=== PATIENT | female | born 1990 | race Caucasian/White ===

== ENCOUNTER 2019-04-20 22:13 | Emergency (ER) ==
[2019-04-20 22:41] VITALS: BP 119/68
[2019-04-21 00:49] LABS: ABSOLUTE BASOPHILS # (AUTO) 0.1 10^3/uL (0.0-0.2); ABSOLUTE EOSINOPHILS # (AUTO) 0.1 10^3/uL (0.0-0.6); ABSOLUTE LYMPHOCYTES (AUTO) 1.3 10^3/uL (0.5-4.7); ABSOLUTE MONOCYTES (AUTO) 0.7 10^3/uL (0.1-1.4); BASOPHILS % (AUTO) 0.7 % (0-2); EOSINOPHILS % (AUTO) 0.7 % (0-6); HEMATOCRIT 38.6 % (36.0-47.0); HEMOGLOBIN 12.8 g/dL (12.0-15.5); LYMPHOCYTES % (AUTO) 11.7 % (13-45); MEAN CORPUSCULAR HEMOGLOBIN 30.3 pg (27.0-33.4); MEAN CORPUSCULAR HGB CONC 33.3 g/dL (32.0-36.0); MEAN CORPUSCULAR VOLUME 91 fl (80-97); MONOCYTES % (AUTO) 6.2 % (3-13); PLATELET COUNT 249 10^3/uL (150-450); RED BLOOD COUNT 4.24 10^6/uL (3.72-5.28); RED CELL DISTRIBUTION WIDTH 12.8 % (11.5-14.0); SEGMENTED NEUTROPHILS % (AUTO) 80.7 % (42-78); TOTAL CELLS COUNTED % (AUTO) 100 %; WHITE BLOOD COUNT 11.2 10^3/uL (4.0-10.5)
[2019-04-21 00:55] LABS: APPEARANCE,URINE SLIGHTLY-CLOUDY; BILIRUBIN,URINE NEGATIVE (NEGATIVE); COLOR,URINE YELLOW; GLUCOSE, URINE NEGATIVE (NEGATIVE); KETONES,URINE TRACE mg/dL (NEGATIVE); LEUKOCYTE ESTERASE,URINE SMALL (NEGATIVE); NITRITE,URINE NEGATIVE (NEGATIVE); PROTEIN,URINE NEGATIVE (NEGATIVE); URINE SPECIFIC GRAVITY 1.025
[2019-04-21 01:15] LABS: ALBUMIN 4.2 g/dL (3.5-5.0); ALKALINE PHOSPHATASE 91 U/L (38-126); ANION GAP 10 (5-19); ASPARTATE AMINO TRANSFERASE 21 U/L (14-36); BILIRUBIN,DIRECT 0.1 mg/dL (0.0-0.4); BILIRUBIN,TOTAL 0.6 mg/dL (0.2-1.3); BLOOD UREA NITROGEN 12 mg/dL (7-20); CALCIUM 9.6 mg/dL (8.4-10.2); CARBON DIOXIDE 25 mmol/L (22-30); CHLORIDE 107 mmol/L (98-107); GLUCOSE 82 mg/dL (75-110); POTASSIUM 4.4 mmol/L (3.6-5.0); TOTAL PROTEIN 7.6 g/dL (6.3-8.2)
== END 2019-04-21 03:10 | disposition left against medical advice (07) ==
LOC: ER 22:13
DX: Z53.21 Procedure and treatment not carried out due to patient leaving prior to being seen by health care provider (principal)
CPT/HCPCS: 36415; 80053; 81001; 83690; 85025

== ENCOUNTER 2019-04-21 12:57 | Emergency (ER) | payer SELFPAY ==
--- NOTE | 2019-04-21 13:19 | ER Document Report ---
ED Medical Screen (RME) - General Chief Complaint: Abdominal Pain Stated Complaint: LOWER ABDOMINAL/PELVIC PAIN Time Seen by Provider: 04/21/19 13:13 Mode of Arrival: Ambulatory Information source: Patient Notes: 29-year-old female with no past medical history presents emergency department with right lower quad/pelvic pain. Reports she is had the pain all week. Reports she cannot get comfortable. Reports she has been eating drinking voiding as normal denies pain with void. Reports she is not eating as much. Denies vaginal discharge. I have greeted and performed a rapid initial assessment of this patient. A comprehensive ED assessment and evaluation of the patient, analysis of test results and completion of the medical decision making process will be conducted by additional ED providers. Dictation of this chart was performed using voice recognition software; therefore, there may be some unintended grammatical errors. TRAVEL OUTSIDE OF THE [place] IN LAST 30 DAYS: No - Related Data Allergies/Adverse Reactions: Penicillins Allergy (Unknown, Verified 04/21/19 13:10) Past Medical History - Social History Frequency of alcohol use: None Drug Abuse: None Physical Exam - Vital signs Vitals: Temp Pulse Resp BP Pulse Ox 98.6 F 80 18 113/66 100 04/21/19 13:02 04/21/19 13:02 04/21/19 13:02 04/21/19 13:02 04/21/19 13:02 Course - Vital Signs Vital signs: Temp Pulse Resp BP Pulse Ox 98.6 F 80 18 113/66 100 04/21/19 13:10 04/21/19 13:02 04/21/19 13:10 04/21/19 13:02 04/21/19 13:10
[2019-04-21 13:58] LABS: ABSOLUTE BASOPHILS # (AUTO) 0.1 10^3/uL (0.0-0.2); ABSOLUTE EOSINOPHILS # (AUTO) 0.1 10^3/uL (0.0-0.6); ABSOLUTE LYMPHOCYTES (AUTO) 0.8 10^3/uL (0.5-4.7); ABSOLUTE MONOCYTES (AUTO) 0.7 10^3/uL (0.1-1.4); ABSOLUTE NEUT (AUTO) 7.8 10^3/uL (1.7-8.2); BASOPHILS % (AUTO) 0.5 % (0-2); EOSINOPHILS % (AUTO) 1.2 % (0-6); HEMATOCRIT 39.6 % (36.0-47.0); HEMOGLOBIN 13.4 g/dL (12.0-15.5); LYMPHOCYTES % (AUTO) 8.3 % (13-45); MEAN CORPUSCULAR HEMOGLOBIN 30.7 pg (27.0-33.4); MEAN CORPUSCULAR HGB CONC 33.8 g/dL (32.0-36.0); MEAN CORPUSCULAR VOLUME 91 fl (80-97); MONOCYTES % (AUTO) 7.5 % (3-13); PLATELET COUNT 237 10^3/uL (150-450); RED BLOOD COUNT 4.35 10^6/uL (3.72-5.28); RED CELL DISTRIBUTION WIDTH 12.8 % (11.5-14.0); SEGMENTED NEUTROPHILS % (AUTO) 82.5 % (42-78); TOTAL CELLS COUNTED % (AUTO) 100 %; WHITE BLOOD COUNT 9.4 10^3/uL (4.0-10.5)
[2019-04-21 14:08] LABS: ALBUMIN 4.2 g/dL (3.5-5.0); ALKALINE PHOSPHATASE 81 U/L (38-126); ANION GAP 10 (5-19); ASPARTATE AMINO TRANSFERASE 19 U/L (14-36); BLOOD UREA NITROGEN 9 mg/dL (7-20); CALCIUM 9.7 mg/dL (8.4-10.2); CARBON DIOXIDE 26 mmol/L (22-30); CHLORIDE 104 mmol/L (98-107); POTASSIUM 3.7 mmol/L (3.6-5.0); TOTAL PROTEIN 7.5 g/dL (6.3-8.2)
--- NOTE | 2019-04-21 14:09 | RADIOLOGY REPORT (SQ) ---
EXAM DESCRIPTION: U/S NON OB PEL TV W/DOPPLER COMPLETED DATE/TIME: 04/21/2019 1:50 pm REASON FOR STUDY: right lower pelvic pain COMPARISON: None. TECHNIQUE: Dynamic and static grayscale images acquired of the pelvis via transvaginal approach and recorded on PACS. Additional selected color Doppler and spectral images recorded. LIMITATIONS: None. FINDINGS: UTERUS: Contour normal. No mass. ENDOMETRIAL STRIPE: No focal or generalized thickening. No masses. CERVIX: No nabothian cysts. RIGHT OVARY AND DOPPLER: Normal size. No worrisome masses. Normal arterial vascular flow without evid ence for torsion. LEFT OVARY AND DOPPLER: Ovary not visualized. FREE FLUID: Free fluid is seen within the pelvic cul-de-sac and adjacent to the right adnexa. OTHER: No other significant finding. MEASUREMENTS: UTERUS: 8.9 x 4.2 x 5.1 cm ENDOMETRIAL STRIPE: 0.2 cm RIGHT OVARY: 4.0 x 2.3 x 3.2 cm LEFT OVARY: Not visualized. IMPRESSION: Limited examination in that the left ovary was not visualized. No findings to correlate to the patient's reported right lower quadrant pain. Normal sonographic appearance of the uterus an d right adnexa. TECHNICAL DOCUMENTATION: JOB ID: [id number] [employer]- All Rights Reserved Rev-09/23 Reading location - IP/workstation name: [email or web address]
[2019-04-21 14:13] LABS: GLUCOSE 66 mg/dL (75-110)
[2019-04-21 14:15] LABS: APPEARANCE,URINE CLEAR; BILIRUBIN,URINE NEGATIVE (NEGATIVE); COLOR,URINE YELLOW; GLUCOSE, URINE NEGATIVE (NEGATIVE); KETONES,URINE NEGATIVE (NEGATIVE); PROTEIN,URINE NEGATIVE (NEGATIVE); URINE SPECIFIC GRAVITY 1.016
[2019-04-21] MEDS ORDERED: KETOROLAC TROMETHAMINE INJ/PF 30 MG/1 ML SDV IV ONE (18:42)
[2019-04-21] MEDS ORDERED: NORMAL SALINE 1000 ML 1,000 ML IV ONE (18:42)
--- NOTE | 2019-04-21 19:14 | ER Document Report ---
ED General - General Chief Complaint: Abdominal Pain Stated Complaint: LOWER ABDOMINAL/PELVIC PAIN Time Seen by Provider: 04/21/19 13:13 Mode of Arrival: Ambulatory TRAVEL OUTSIDE OF THE [place] IN LAST 30 DAYS: No - HPI Notes: 29-year-old female to the emergency department with complaints of right lower quadrant abdominal pain that has been getting progressively worse since Tuesday. She states that it was mild at the beginning of the week but in the past 2 days it has gotten much more painful. She is tried Tylenol without a lot of relief. She states that her last menstrual period was March 19 and that she has been having some bleeding for 4 days this week. She states that she bled for 2 and then stopped bleeding and then the period came back on again. She has never had a history of ovarian cyst. She still has an appendix. She denies any nausea vomiting. She denies any fevers. She states that she has a history of tubal ligation. Denies any urinary symptoms. - Related Data Allergies/Adverse Reactions: Penicillins Allergy (Unknown, Verified 04/21/19 13:10) Past Medical History - General Information source: Patient - Social History Smoking Status: Current Every Day Smoker Frequency of alcohol use: None Drug Abuse: None Lives with: Family Family History: Reviewed & Not Pertinent Patient has suicidal ideation: No Patient has homicidal ideation: No Review of Systems - Review of Systems Constitutional: denies: Chills, Fever EENT: No symptoms reported Cardiovascular: denies: Chest pain, Palpitations, Dizziness, Lightheaded Respiratory: denies: Cough, Short of breath Gastrointestinal: See HPI, Abdominal pain. denies: Diarrhea, Nausea, Vomiting Genitourinary: denies: Frequency, Flank pain, Hematuria Female Genitourinary: Vaginal bleeding. denies: , Vaginal discharge Musculoskeletal: No symptoms reported Skin: No symptoms reported Hematologic/Lymphatic: No symptoms reported Neurological/Psychological: No symptoms reported -: Yes All other systems reviewed and negative Physical Exam - Vital signs Vitals: Temp Pulse Resp BP Pulse Ox 98.6 F 80 18 113/66 100 04/21/19 13:02 04/21/19 13:02 04/21/19 13:02 04/21/19 13:02 04/21/19 13:02 Interpretation: Normal - General General appearance: Appears well, Alert In distress: None - HEENT Head: Normocephalic, Atraumatic Eyes: Normal Pupils: PERRL - Respiratory Respiratory status: No respiratory distress Chest status: Nontender. No: Accessory muscle use Breath sounds: Normal. No: Rales, Rhonchi, Stridor, Wheezing Chest palpation: Normal - Cardiovascular Rhythm: Regular Heart sounds: Normal auscultation Murmur: No - Abdominal Inspection: Normal Distension: No distension Bowel sounds: Normal Tenderness: Tender - Positive tenderness to palpation in the right lower quadrant at McBurney's point. There is mild voluntary guarding. Negative Rovsing's. Negative heeltap. No: Martines's sign Organomegaly: No organomegaly - Back Back: Normal, Nontender - Neurological Neuro grossly intact: Yes Cognition: Normal Orientation: AAOx4 [place] Coma Scale Eye Opening: Spontaneous Sary Coma Scale Verbal: Oriented Sary Coma Scale Motor: Obeys Commands Sary Coma Scale Total: 15 Speech: Normal Cranial nerves: Normal Cerebellar coordination: Normal Motor strength normal: LUE, RUE, LLE, RLE Additional motor exam normals: Equal box turner. No: Pronator drift Sensory: Normal - Psychological Associated symptoms: Normal affect, Normal mood - Skin Skin Temperature: Warm Skin Moisture: Dry Skin Color: Normal Course - Re-evaluation Re-evalutation: 04/21/19 19:14 Patient with right lower quadrant abdominal pain. Ultrasound did not show ovarian cyst. Do believe that patient will require CT to evaluate further for appendicitis. Noted labs. Patient is not . Patient agrees with the plan. 04/21/19 20:09 Turned patient over to LONNY Kohler. She will await CT scan. She will disposition the patient accordingly. - Vital Signs Vital signs: Temp Pulse Resp BP Pulse Ox 98.6 F 80 18 113/66 100 04/21/19 13:10 04/21/19 13:02 04/21/19 13:10 04/21/19 13:02 04/21/19 13:10 - Laboratory Result Diagrams: 04/21/19 13:30 04/21/19 13:30 Laboratory results interpreted by me: 04/21/19 04/21/19 04/21/19 13:30 13:30 13:30 Lymph % (Auto) 8.3 L Seg Neutrophils % 82.5 H Glucose 66 L Urine Blood SMALL H Urine Urobilinogen 2.0 H Leukocyte Esterase Rfl TRACE H Discharge - Discharge Clinical Impression: Right lower quadrant pain Condition: Stable Disposition: OTHER
--- NOTE | 2019-04-21 22:28 | RADIOLOGY REPORT (SQ) ---
EXAM DESCRIPTION: CT ABDOMEN PELVIS WITH IV CONTRAST COMPLETED DATE/TME: 04/21/2019 18:39 CLINICAL HISTORY: 29 years, Female, RLq abd pain, eval appy COMPARISON: None. TECHNIQUE: 359 Images stored on PACS. All CT scanners at this facility use dose modulation, iterative reconstruction, and/or weight based dosing when appropriate to reduce radiation dose to as low as reasonably achievable (ALARA). [facility]: Dose Right [facility]: CareDose [facility]: Dose Right [facility]: Teradose 4D [facility]: rSmart LIMITATIONS: None. FINDINGS: Visualized lung bases are unremarkable. Incidental note is made of a well-defined cystic structure associated with the left heart border/left pericardium likely reflecting pericardial cyst measuring 5.0 x 4.4 cm. Osseous structures are grossly intact. The liver, spleen, adrenal glands, pancreas, are unremarkable. Nonobstructing right renal calculi. Kidneys are otherwise unremarkable. Gallbladder is present. No evidence for bowel obstruction. Normal appendix. No free air. Small amount of free fluid in the pelvis, likely physiologic. Prominent vascularity in the pelvis could reflect pelvic congestion syndrome in the appropriate clinical setting. IMPRESSION: Nonobstructing right renal calculi. Small amount of free fluid in the pelvis, likely physiologic. Normal appendix. Slight prominence of the pelvic vasculature which could reflect pelvic congestion syndrome in the appropriate clinical setting. Pericardial cyst along the left heart border TECHNICAL DOCUMENTATION: Quality ID # 436: Final reports with documentation of one or more dose reduction techniques (e.g., Automated exposure control, adjustment of the mA and/or kV according to patient size, use of iterative reconstruction technique) copyright 2011 [employer]- All Rights Reserved
[2019-04-22 00:08] VITALS: BP 108/65
== END 2019-04-21 23:55 | disposition home or self-care (01) ==
LOC: ER 12:57
DX: N94.89 Other specified conditions associated with female genital organs and menstrual cycle (principal); R10.31 Right lower quadrant pain; R10.813 Right lower quadrant abdominal tenderness; F17.200 Nicotine dependence, unspecified, uncomplicated; Z87.42 Personal history of other diseases of the female genital tract; Z98.51 Tubal ligation status; Z88.0 Allergy status to penicillin
CPT/HCPCS: 36415; 84703; 87070; 81001; 76830; 93976; 74177; J1885; J7030; 96361; 96374; 99284

== ENCOUNTER → 2019-12-03 | Outpatient (CLI) | payer MEDICAID ==
--- NOTE | 2019-12-04 08:55 | RADIOLOGY REPORT (SQ) ---
EXAM DESCRIPTION: MRI LT LOWER EXTREMITY COMBO IMAGES COMPLETED DATE/TIME: 12/03/2019 5:02 pm REASON FOR STUDY: R22.42 LOCALIZED SWELLING, MASS AND LUMP, LEFT LOWER LIMB R22.42 LOCALIZED SWELLI NG, MASS AND LUMP, LEFT LOWER LIMB COMPARISON: None. TECHNIQUE: Left ankle images acquired and stored on PACS. Multiplanar images include fat sensitive s equences as T1, fluid sensitive sequences as FST2/STIR, cartilage sensitive sequences as FSPD, and gr adient echo sequences. T1 postcontrast sequences. LIMITATIONS: None. FINDINGS: BONE MARROW: No alteration of signal to suggest marrow replacement or edema. No occult fra cture. No large osteophytes. EFFUSIONS: No subtalar or tibiotalar effusions. No loose bodies. OSSEOUS ARTICULATIONS: Normal tibiotalar, subtalar, talonavicular and calcaneocuboid joints. TALAR DOME AND TIBIAL PLAFOND: Normal cartilage. No osteochondral defect. ACHILLES TENDON: Intact without partial or full-thickness tear. No adjacent bursal fluid or edema. TIBIALIS ANTERIOR TENDON: Intact without edema at the 1st MT attachment. TIBIALIS POSTERIOR TENDON: Normal morphology and no edema at the navicular attachment. No tendon chavez th fluid. FLEXOR HALLUCIS LONGUS AND FLEXOR DIGITORUM TENDONS: Normal morphology and no tendon sheath fluid. No edema of the os trigonum. PERONEUS LONGUS AND BREVIS TENDON: Normal morphology and no tendon sheath fluid. No subluxation. ATFL, CFL, PTFL: Intact. No thickening or signal alteration. No karen-ligamentous fluid. DELTOID LIGAMENT: Visualized components intact. TARSAL TUNNEL: No masses. No muscle atrophy. SINUS TARSI: No fluid. No reactive marrow edema or erosions. PLANTAR FASCIA: No signal alteration or tear. ADJACENT SOFT TISSUES: Just inferior to the attachment of the plantar fascia on the calcaneus there i s a focal area of abnormal signal measuring 2.4 by 1.2 x 0.8 cm AP by transverse by craniocaudal diam eter. Similar signal to soft tissue on T1 with heterogeneous high-signal T2 and subtle regional enha ncement but no discrete enhancing mass. OTHER: No other significant finding. IMPRESSION: Localized inflammation without discrete mass. TECHNICAL DOCUMENTATION: JOB ID: [id number] [employer]- All Rights Reserved Reading location - IP/workstation name: [email or web address]
== END ==
LOC: RAD 15:42
PROVIDERS: ATTEND Orthopaedic Surgery
DX: R22.42 Localized swelling, mass and lump, left lower limb (principal)
CPT/HCPCS: 73720; A9576